=== PATIENT | male | born 1965 | race African-American/Black ===

== ENCOUNTER 2024-05-13 21:00 | Emergency (ER) | payer SELFPAY ==
[~2024-05-13] VITALS: Ht 172.7 cm; Wt 81.2 kg
[2024-05-13 21:14] VITALS: PULSE 106; RESP 16; TEMP 98.2
[2024-05-13] MEDS: IBUPROFEN 600 MG TAB PO STA (22:17)
[2024-05-13] MEDS ORDERED: ZITHROMAX250 MG PO (22:46)
[2024-05-13] MEDS ORDERED: VENTOLIN HFA18 GM INH (22:47)
[2024-05-13] MEDS ORDERED: BENZONATATE200 MG PO (22:47)
[2024-05-13] MEDS: AZITHROMYCIN 250 MG TAB PO ONE (22:48)
[2024-05-13 23:02] VITALS: BP 152/72; PULSE 99; RESP 18; TEMP 98.2; O2SAT 98
== END 2024-05-13 23:02 | disposition home or self-care (01) ==
LOC: FSED 21:16
DX: R50.9 Fever, unspecified (principal); J20.9 Acute bronchitis, unspecified; R05.9 Cough, unspecified; R45.82 Worries; Z11.52 Encounter for screening for COVID-19; R94.31 Abnormal electrocardiogram [ECG] [EKG]
CPT/HCPCS: 0223U; 71046; 87400; 93005; 99283

== ENCOUNTER 2024-05-15 10:34 | Emergency (ER) | payer SELFPAY ==
[~2024-05-15] VITALS: Ht 172.7 cm; Wt 80.8 kg
[~2024-05-15 10:34] MED LIST: BENZONATATE200 MG PO; VENTOLIN HFA18 GM INH; ZITHROMAX250 MG PO
[2024-05-15] MEDS: SODIUM CHLORIDE 0.9% 1000ML 1,000 ML IV ONE (11:49)
[2024-05-15 12:54] VITALS: PULSE 99; RESP 18; TEMP 98.8; O2SAT 97
[2024-05-15] MEDS ORDERED: DOXYCYCLINE HY100 MG PO (13:09)
== END 2024-05-15 13:18 | disposition home or self-care (01) ==
LOC: FSED 10:38
DX: R50.9 Fever, unspecified (principal); J98.4 Other disorders of lung; R05.9 Cough, unspecified; Z11.52 Encounter for screening for COVID-19
CPT/HCPCS: 0223U; 71046; 80048; 85025; 87400; 99284; J7030